=== PATIENT | male | born 1940 | race Caucasian/White ===

== ENCOUNTER 2016-09-29 14:04 | Inpatient (IN) ==
[2016-09-29] MEDS ORDERED: ZOFRAN IV ONE ×2 (14:35→15:51)
[2016-09-29] MEDS ORDERED: DILAUDID IV ONE (14:35)
[2016-09-29 15:05] LABS: BE -1.8 mmoll (-3.0-3.0); BLOOD TYPE ARTERIAL; METHB 1.2 % (0.0-1.5); PCO2(98.6) 42 mmHg (35-45); SAMPLE BLOOD; SAO2 84.5 % (95.0-100.0); pH(98.6) 7.36 (7.35-7.45)
[2016-09-29 15:09] LABS: MANUAL DIFF NEEDED? NO
[2016-09-29 15:11] LABS: PO2(98.6) 44 mmHg (60-100)
[2016-09-29 15:12] LABS: ALLEN TEST YES; DRAW SITE R RADIAL; MODALITY CANNULA
[2016-09-29 15:26] LABS: BASO% 0.1 % (0.0-0.8); EOS% 0.9 % (0.0-10.0); HEMOGLOBIN 15.7 g/dL (14.0-18.0); IMM GRAN# 0.02 X1000 (0.0-0.04); IMM GRAN% 0.2 % (0.0-0.5); LYMPH% 5.3 % (20.5-51.1); MCH 31.4 PG (27-31); MCHC 32.7 g/dL (33-37); MONO# 0.51 X1000 (0.11-0.59); MONO% 4.5 % (1.7-9.3); MPV 12.5 FL (7.4-10.4); PLT 144 X1000 (130-400)
--- NOTE | 2016-09-29 15:28 | EKG Report ---
Test Performed on : 09/29/2016 2:50:34 PM Test Reason : SOB Blood Pressure : / mmHG Vent. Rate : 122 BPM Atrial Rate : 125 BPM P-R Int : 000 ms QRS Dur : 084 ms QT Int : 300 ms P-R-T Axes : 000 084 -13 degrees QTc Int : 427 ms Atrial fibrillation. with rapid ventricular response. Abnormal QRS-T angle, consider primary T wave abnormality Abnormal ECG No previous ECGs available Unconfirmed Result
[2016-09-29 15:38] LABS: AGAP 14; ALBUMIN 4.8 g/dL (3.5-5.0); ALKALINE PHOSPHATASE 103 U/L (32-122); BUN 21 mg/dL (8-22); CALCIUM 9.9 mg/dL (8.8-10.2); CHLORIDE 103 mmol/L (98-107); CK PROFILE 192 U/L (24-204); COSMO 287; GOT 26 U/L (10-34); GPT 22 U/L (10-44); POTASSIUM 4.5 mmol/L (3.5-5.1); SODIUM 141 mmol/L (136-145); TCO2 25 mmol/L (25-35); TOTAL PROTEIN 7.9 g/dL (6.3-8.3)
--- NOTE | 2016-09-29 15:40 | Diag Imaging Result Doc PS360 ---
EXAM: RIBS UNILAT W/PA CHEST RIGHT HISTORY: Fall with SOB TECHNIQUE: Chest and right rib detail, five views COMPARISON: None. FINDINGS: No contusion or pneumothorax. The mediastinum is not widened. There is an acute fracture to the lateral seventh rib. There are also acute fractures posteriorly to the fifth, sixth, and seventh ribs. Possible nondisplaced eighth rib fracture. IMPRESSION: Multiple acute right rib fractures. Electronically signed by Glen Padilla 09/29/2016 3:38 PM
[2016-09-29] MEDS ORDERED: ZOFRAN ONE (15:51)
--- NOTE | 2016-09-29 17:05 | Diag Imaging Result Doc PS360 ---
EXAM: THORAX/ABDOMEN - 09/29/2016 HISTORY: Fall TECHNIQUE: With intravenous contrast. Dose reduction protocol. COMPARISON: None. FINDINGS: There are fractures of the lateral right fifth, lateral and anterior lateral right sixth, lateral and anterior lateral right seventh, and lateral right eighth ribs. There are substantial emphysematous changes, particularly at the upper lobes. There is a small right pleural effusion. There is compressive atelectasis at the inferior right lower lobe adjacent to the pleural fluid. There is no pneumothorax identified. There is consolidation at the left lower lobe. This is suspicious for pneumonia. There is no mediastinal hematoma or pericardial fluid identified. There is mild cardiomegaly. There is no evidence of injury to the liver, spleen, adrenal glands, or kidneys. There is a small right renal cyst. The pancreas is somewhat atrophic but shows no acute abnormality. There are a few small gallstones in the gallbladder. There is a small fat-containing umbilical hernia. There is no evidence of bowel obstruction. There is uncomplicated diverticulosis at the visualized colon. There is no abnormal bowel wall thickening identified. There is no free air. There is no free fluid identified in the abdomen. There is no peritoneal or retroperitoneal hematoma identified in the abdomen. There are substantial lumbar spine degenerative changes noted. IMPRESSION: Fractures of right fifth through eighth ribs. Small right pleural effusion with adjacent atelectasis. No evidence of pneumothorax. Substantial emphysematous changes. Left lower lobe consolidation suspicious for pneumonia. Mild cardiomegaly. No evidence of injury to the abdomen. Electronically signed by Stewart Grubbs 09/29/2016 5:02 PM
[2016-09-29] MEDS ORDERED: XYLOCAINE-MPF 1% INJ ONE (17:08)
[2016-09-29] MEDS ORDERED: ROCEPHIN 1 GM/NS 1 GM/50 ML IVPB IV ONE (17:09)
--- NOTE | 2016-09-29 17:36 | PROVIDER DOCUMENTATION ---
This chart was entered by Brynn Cooper Scribe, acting as scribe for Susan Ferguson CRNP. HPI-General Adult - General Chief Complaint: Rib Injury Stated Complaint: FALL INJURY Time Seen by Provider: 09/29/16 14:08 Source: patient Allergies/Adverse Reactions: Patient Allergies Allergy/AdvReac Type Severity Reaction Status Date / Time No Known Allergies Allergy Verified 09/29/16 14:27 Home Medications: Home Medication List Medication Instructions Recorded Confirmed Last Taken Type Amlodipine [Norvasc] 5 mg PO DAILY 09/29/16 09/29/16 09/29/16 05:30 History 5 MG Aspirin/Calcium Carbonate/Mag 325 mg PO DAILY 09/29/16 09/29/16 09/29/16 05:30 History [Aspirin Buffered 325 mg Tab] Carvedilol 25 mg PO BID 09/29/16 09/29/16 09/29/16 05:30 History 25 MG Lisinopril 20 mg PO DAILY 09/29/16 09/29/16 09/29/16 05:30 History 20 MG - History of Present Illness -Gen Adult Nature of Presenting Problems: 75 yo M presents to the ER with complaint of fall x3 days ago and R sided rib pain. Pt states it has gotten progressively worse, painful inspiration. States x3 days ago he fell about 12ft and landed on a metal bar. Pt arrives with increased respiratory rate and with a fever. Also has bruising and skin tears to L arm. Location of Pain/Injury: reports: upper extremity, upper body Onset/Duration: reports: 3 days ago Associated Symptoms: reports: fever/chills, joint pain, pain with inspiration Review of Systems - Adult - REVIEW OF SYSTEMS - ADULT Constitutional: reports: chills, fever Eyes: reports: no symptoms reported Ears, Nose, Mouth & Throat: reports: no symptoms reported Cardiovascular: denies: chest pain, palpitations Respiratory: reports: shortness of breath. denies: cough Gastrointestinal: denies: diarrhea, nausea, vomiting Genitourinary: reports: no symptoms reported Musculoskeletal: reports: see HPI, joint pain Integumentary: reports: no symptoms reported Neurological: reports: no symptoms reported Psychiatric: reports: no symptoms reported Endocrine: reports: no symptoms reported Hematologic/Lymphatic: reports: no symptoms reported Allergic/Immunologic: reports: no symptoms reported All Other Systems: Reviewed and Negative Past History - Adult - PAST MEDICAL HISTORY-ADULT Review of Records: reports: Nursing Assessment Review, Medications Reviewed Cardiovascular: reports: other (irregular heart rate) - PRIOR SURGERIES/PROCEDURES Surgical/Procedure History: reports: back/neck - IMMUNIZATION STATUS Childhood Immunizations: See Nurse Assessment Flu Vaccine: See Nurse Assessment Physical Exam-General - PHYSICAL EXAM-ADULT Initial Vital Signs Reviewed: Yes - CONSTITUTIONAL General Appearance: alert, no apparent distress - EYES Eyes: PERRL/EOMI, pink conjunctivae - HEAD, EARS, NOSE, MOUTH & THROAT HENMT: normocephalic/atraumatic, normal ENT inspection - NECK Neck: supple, normal inspection - RESPIRATORY Respiratory: rhonchi, pain on inspiration, increased rate, other (coarse breath sounds) - CARDIOVASCULAR Cardiovascular: normal peripheral pulses, regular rate, rhythm - GASTROINTESTINAL (ABDOMEN) Abdominal Exam: normal bowel sounds, non tender, soft - MUSCULOSKELETAL Back Exam: no CVA tenderness, no vertebral tenderness Extremity: normal gait, normal inspection - SKIN Integumentary: warm/dry, ecchymosis (L arm, R side ribs), other (skin tears to L arm) - NEUROLOGIC Neurologic: grossly normal, no motor/sensory deficits - PSYCHIATRIC Psych/Mental Status: normal mood/affect, normal thought content, normal thought process, oriented x 3 Progress - PLAN OF CARE/RESULTS Progress/Plan/Lab Results: Vital Signs - 8 hr 09/29/16 14:20 Temperature 100.5 F H Pulse Rate 115 H Respiratory Rate 28 H Blood Pressure 173/098 O2 Sat by Pulse Oximetry 82 L Orders Category Date Time Status Saline Loc NOW Care 09/29/16 14:34 Active RIBS UNILAT W/PA CHEST RIGHT [RAD] Stat Exams 09/29/16 14:35 Ordered ABG [RESP] Routine Lab 09/29/16 14:36 Ordered BLOOD CULTURE [BLDCUL] Stat Lab 09/29/16 14:35 Ordered CBC WITH ELECTRONIC DIFF [HEME] Stat Lab 09/29/16 14:34 Ordered CK PROFILE [SP CHEM] Stat Lab 09/29/16 14:34 Ordered COMPREHENSIVE METABOLIC PANEL [CHEM] Stat Lab 09/29/16 14:34 Ordered LACTATE, PLASMA [CHEM] Stat Lab 09/29/16 14:35 Ordered TROPONIN T Stat Lab 09/29/16 14:35 Ordered Hydromorphone [Dilaudid] Med 09/29/16 14:35 Discontinued 1 mg IV NOW ONE Ondansetron [Zofran] Med 09/29/16 14:35 Discontinued 4 mg IV NOW ONE EKG [EKG] Stat Ther 09/29/16 14:34 Ordered Discussed results and plan of care with patient. Patient agrees with plan and verbalizes understanding. Result Diagrams: 09/29/16 14:40 09/29/16 14:40 - EKG 1 Time of EKG reading by physician:: 14:50 EKG Read and Signed by:: Nohemi De Souza EKG Interpretation (*Must complete 3 of following elements*): Abnormal Rate: 122 Rhythm: a-fib with RVR [place]: normal QRS: other (abnormal QRS-T angle, consider primary T wave abnormality) CT Interval: normal ST Wave: normal - XRAY 1 XRAY: Right XRAY Study: Ribs Impression: Abnormal (multiple acute R rib fractures, per radiologist) - CT/MRI 1 CT Study: Abdomen, Thorax Impression: Abnormal (fractures of R 5-8 ribs. small R pleural effusion with adjacent atelectasis. no evidence of pneumothorax. substantial emphysematous changes. LLL consolidation suspicious for pneumonia. mild cardiomegaly. per radiologist) - CONSULTS/PCP/HOSPITALIST Notification #1 *Consult/PCP/Hospitalist*: Dr. Howard Time Discussed: 17:24 Reason/Comments: Admit Consult Disposition: Admit Departure - Departure Date of Disposition Decision: 09/29/16 Time of Disposition Decision: 17:25 DIAGNOSIS: Hypoxia, Multiple rib fractures, Pneumonia Disposition: HOME 01 Certified Medical Emergency: Emergent Condition: Stable Referrals and Follow-Ups: Stewart Malhotra MD [Primary Care Provider] - - Critical Care Note This patient required my direct & personal management of CC.: No Attestation - Physician/ ELAN Attestation Patient care was provided by Advanced Practice Provider:: Yes Advanced Practice Provider:: Susan Ferguson Advanced Practice Provider documentation review:: The Mid-level provider documentation, treatment plan and medical decision making was reviewed by the physician who agrees with all treatment and medical decision making by the [facility]. This chart was documented by the christian scribe, (Brynn Cooper Scribe) and accurately reflects the services I performed and decisions made by me, Susan Ferguson CRNP, as attested by the provider's signature.
--- NOTE | 2016-09-29 18:14 | HISTORY AND PHYSICAL ---
PRIMARY CARE PHYSICIAN: Dr. Stewart Malhotra. CHIEF COMPLAINT: Of a fall 3 days ago from a 12-foot scaffold now with increased pain with inspiration that occurred 3 days ago. HISTORY OF PRESENTING ILLNESS: This is a 75-year-old that presents to [facility] ER after he states that he fell off of a 12-foot scaffold approximately 3 days ago. Since then he has had increased pain with inspiration, shortness of breath. When he arrived to the emergency room he had a temperature of 100.5 degrees, a pulse of 115, respirations 28, blood pressure 173/98 and was saturating 82% on room air. Placed on O2 with a 15% nonrebreather now saturating 92%. Workup in the ER showed a white blood cell count of 11.34. A rib with chest x-ray showed multiple acute right rib fractures. No contusion or pneumothorax. CT of the abdomen and chest showed fractures of the right 5th through 8th rib, a left lower lobe consolidation suspicious for pneumonia. No evidence of injury of the abdomen. No evidence of pneumothorax and he is being admitted to the intensive care unit for further evaluation and treatment. PAST MEDICAL HISTORY: Hypertension and atrial fibrillation. PAST SURGICAL HISTORY: Back and neck surgery. FAMILY HISTORY: Noncontributory. SOCIAL HISTORY: He currently resides with his family. No tobacco, alcohol or illicit drug use. ALLERGIES: He has no known drug allergies. HOME MEDICATIONS: He takes Norvasc 5 mg p.o. daily, aspirin 325 mg p.o. daily, Coreg 25 mg p.o. b.i.d. and lisinopril 20 mg p.o. daily. LABORATORY DATA: Showed a white blood cell count of 11.34, hemoglobin 15.7, hematocrit 48, platelets 114,000. ABG showed a pH of 7.36 with a pCO2 of 42, an O2 of 44, bicarb 23,. Sodium 141, potassium 4.5, chloride 103, CO2 25, BUN of 21, creatinine 1, glucose 142, creatine kinase 192, troponin less than 0.010. Plasma lactate 0.8. Chest x-ray with rib showed multiple acute right rib fractures. EKG showed atrial fibrillation with RVR at 122. CT of the chest and abdomen showed fractures of the right 5th through 8th rib, no evidence of pneumothorax, a left lower lobe consolidation suspicious for pneumonia. No evidence of injury to the abdomen. REVIEW OF SYSTEMS: He denied any fever. He has had some chills. Denied any blurred vision or dizziness. He has had shortness of breath, increased pain to his right side with inspiration. Denied any abdominal pain. He is positive for right-sided chest pain where his ribs are broken. Denies any abdominal pain, constipation, diarrhea, burning or hurting with urination. PHYSICAL EXAMINATION: On arrival he had a temperature of a 100.5 degrees, pulse 115, respirations 28, blood pressure 173/98, and was saturating 82% on room air. His pulse is down now to 111, respirations 26, blood pressure 137/91, and he is saturating 92% on a 15% nonrebreather. GENERAL: This is a 75-year-old male who is lying in the bed and answers questions appropriately. HEENT: Normocephalic and atraumatic. Pupils are equal, round, and reactive to light. The extraocular movements are intact. The oropharynx and nares are clear. NECK: Supple. LUNGS: With rhonchi throughout entire lung lakhani. Equal lung expansion and chest wall movement noted. HEART: With irregular rate and rhythm in atrial fibrillation with some mild RVR in 110s now. No murmurs, rubs or gallops. ABDOMEN: Soft, nontender, nondistended. Bowel sounds are present x4 quadrants. EXTREMITIES: There is no clubbing, cyanosis, or edema. NEUROLOGICAL: The cranial nerves 2-12 appear grossly intact. ASSESSMENT: 1. Fall. 2. Acute respiratory failure. 3. Left lower lobe pneumonia. 4. A rib fracture on the right side of ribs 5 through 8. PLAN: He is being admitted to the intensive care unit. Placed on telemetry. O2 per protocol. Turn, cough and deep breathe q.2 hours. Healthy heart diet. Incentive spirometry. We will place on Rocephin 1 gram IV q.24, Levaquin 750 mg IV q.24, Dilaudid 1 mg IV q.4 hours p.r.n., Zofran 4 mg IV q.4 hours p.r.n. Continue his home medications as previously identified and recheck a CBC and a BMP in the a.m. Pt is a full code. Dictated by NELI Munguia for David Howard MD cc: MD David Otero MD MTDD
[2016-09-29] MEDS ORDERED: TYLENOL PO PRN (19:11)
[2016-09-29] MEDS ORDERED: ZOFRAN IV PRN (19:11)
[2016-09-29] MEDS: COREG PO SCH (20:11)
[2016-09-29] MEDS: DILAUDID IV PRN (20:11)
[2016-09-29] MEDS: LEVAQUIN 750 MG/D5W 750 MG/150 ML IVPB IV SCH (20:11)
[2016-09-30] MEDS: DILAUDID IV PRN ×3 (00:55→21:34)
[2016-09-30 06:10] LABS: AGAP 9; BUN 24 mg/dL (8-22); CALCIUM 9.1 mg/dL (8.8-10.2); CHLORIDE 101 mmol/L (98-107); COSMO 283; POTASSIUM 4.5 mmol/L (3.5-5.1); SODIUM 139 mmol/L (136-145); TCO2 29 mmol/L (25-35)
[2016-09-30 06:18] LABS: BASO% 0.1 % (0.0-0.8); EOS# 0.03 X1000 (0.0-0.7); EOS% 0.2 % (0.0-10.0); HEMATOCRIT 38.9 % (42.0-52.0); HEMOGLOBIN 12.6 g/dL (14.0-18.0); IMM GRAN# 0.03 X1000 (0.0-0.04); IMM GRAN% 0.2 % (0.0-0.5); LYMPH# 0.88 X1000 (1.2-3.4); LYMPH% 6.6 % (20.5-51.1); MANUAL DIFF NEEDED? YES; MCH 31.9 PG (27-31); MCHC 32.4 g/dL (33-37); MCV 98.5 FL (81-99); MONO# 0.95 X1000 (0.11-0.59); MONO% 7.2 % (1.7-9.3); MPV 12.5 FL (7.4-10.4); NEUT% 85.7 % (42.2-75.2); PLT 107 X1000 (130-400); RBC 3.95 XMIL (4.7-6.1)
[2016-09-30 07:51] LABS: BANDS 5 % (0-1); HYPOCHROM OCCASIONAL; LYMPHS 7 % (21-51); MONO 4 % (1-9)
[2016-09-30] MEDS: NORVASC PO SCH (09:19)
[2016-09-30] MEDS: ASPIRIN EC PO SCH (09:19)
[2016-09-30] MEDS: COREG PO SCH ×2 (09:19→20:15)
[2016-09-30] MEDS: PRINIVIL PO SCH (09:19)
--- NOTE | 2016-09-30 11:37 | PROGRESS NOTE ---
DATE: 09/30/2016 SUBJECTIVE: Patient has no focal complaints. OBJECTIVE: Vital Signs: Blood pressure 109/57, heart rate of 90, respiratory rate 24, temperature 97.6 degrees, satting 91% on 6 L. Cardiovascular: Regular rate and rhythm. Pulmonary: Bilateral breath sounds. Clear to auscultation. GI: Soft, nontender, nondistended. Bowel sounds are positive. LABORATORY DATA: White count of 13, H and H 12 and 38, platelets 107. Basic was normal. PROBLEM LIST: 1. Left lower lobe pneumonia. We will continue antibiotics. He is on Levaquin day 2 and Rocephin day 2. Need to work on pulmonary toilet. 2. Acute respiratory failure. We will work on trying to get his breathing better, add Mucomyst. He is on spirometry. Will add Acapella and Mucomyst as described. Hopefully we can try to work on weaning down oxygen. Obviously he is splinting from the multiple rib fractures. 3. Multiple rib fractures. We will continue pain control, incentive spirometry. He may need a physical therapy evaluation when his oxygen level is a little bit better. 4. Acute respiratory failure. We will continue to follow closely. Wean oxygen as tolerated. Continue with pulmonary toilet. DISPOSITION: He is still requiring a fairly significant amount of oxygen 6 L with saturations that are marginal, so I am going to continue monitoring in the ICU. cc: Mason Paulino MD
[2016-09-30] MEDS: NORCO-7.5 PO PRN ×2 (12:18→19:49)
[2016-09-30] MEDS ORDERED: DUONEB (A & A) ONE (13:54)
[2016-09-30] MEDS: MUCOMYST 20% INH SCH ×2 (14:01→19:55)
[2016-09-30] MEDS: DUONEB (A & A) INH SCH ×3 (14:01→23:45)
[2016-09-30] MEDS: ROCEPHIN 1 GM/NS 1 GM/50 ML IVPB IV SCH (17:10)
[2016-09-30] MEDS: LEVAQUIN 750 MG/D5W 750 MG/150 ML IVPB IV SCH (19:49)
[2016-10-01] MEDS: DILAUDID IV PRN ×2 (00:35→19:55)
[2016-10-01] MEDS: NORCO-7.5 PO PRN ×3 (02:25→21:49)
[2016-10-01] MEDS: DUONEB (A & A) INH SCH ×6 (04:08→23:20)
[2016-10-01 05:47] LABS: HEMOGLOBIN 12.9 g/dL (14.0-18.0); MCHC 33.1 g/dL (33-37); MCV 96.8 FL (81-99); MPV 12.3 FL (7.4-10.4); RBC 4.03 XMIL (4.7-6.1)
[2016-10-01 06:17] LABS: AGAP 10; BUN 23 mg/dL (8-22); CHLORIDE 98 mmol/L (98-107); COSMO 277; POTASSIUM 4.3 mmol/L (3.5-5.1); SODIUM 136 mmol/L (136-145); TCO2 28 mmol/L (25-35)
--- NOTE | 2016-10-01 07:37 | Diag Imaging Result Doc PS360 ---
EXAM: CHEST-PORTABLE - 10/01/2016 HISTORY: dyspnea TECHNIQUE: Portable chest 6:00 AM COMPARISON: 09/29/2016 FINDINGS: There is stable mild cardiomegaly. There is hazy right basilar opacity which is increased. There is grossly stable retrocardiac opacity. The upper lungs appear clear. There is possible small right pleural effusion, but there is no large pleural effusion identified. There is no pneumothorax identified. IMPRESSION: Stable mild cardiomegaly. Hazy right basilar opacity which is increased. Grossly stable retrocardiac opacity. No large pleural effusion. No pneumothorax. Electronically signed by Stewart Grubbs 10/01/2016 7:35 AM
[2016-10-01] MEDS: MUCOMYST 20% INH SCH ×2 (07:56→20:16)
[2016-10-01] MEDS: COREG PO SCH ×3 (09:56→21:54)
[2016-10-01] MEDS: PRINIVIL PO SCH (09:57)
[2016-10-01] MEDS: NORVASC PO SCH (09:57)
[2016-10-01] MEDS: ASPIRIN EC PO SCH (09:57)
[2016-10-01] MEDS: ROCEPHIN 1 GM/NS 1 GM/50 ML IVPB IV SCH (17:12)
[2016-10-01] MEDS: LEVAQUIN 750 MG/D5W 750 MG/150 ML IVPB IV SCH (19:47)
--- NOTE | 2016-10-01 19:51 | PROGRESS NOTE ---
DATE: 10/01/2016 SUBJECTIVE: Patient without any new complaints. States that he is feeling a little bit better. He is still coughing. It still hurts to breathe. He has been trying to use incentive spirometer. Denies any worsening of his breathing. Denies any GI or issues. Denies any rashes. OBJECTIVE: Vital Signs: Temperature 98.7, pulse 84, respiratory rate 18, BP 110/57, saturation 95% on 6 L. General: Patient is awake, alert. He is in no true respiratory distress, but he is still having difficulty taking deep breaths secondary to the pain from his previous rib fractures. HEENT: Normocephalic, atraumatic. PERRL, EOMI. Neck: Supple. CV: Regular rate. Chest: Relatively clear, although decreased breath sounds on the left. Abdomen: Soft. Extremities: Moves all extremities. ASSESSMENT: 1. Left lower lobe pneumonia. Currently on Levaquin and Rocephin. We will continue those. Will continue pulmonary toilet. 2. Recent fall with multiple rib fractures on the left. 3. Acute respiratory failure. He is currently on Acapella and Mucomyst, incentive spirometry, breathing treatments, oxygen. Will continue to attempt to wean down his oxygen as tolerated. He currently is on 6 L. PLAN: We will continue patient on oxygen. We will attempt to wean down. Will continue incentive spirometry. His O2 saturations are actually starting to come up despite staying on 6 L, we will attempt to wean down. We will move him out of the ICU today as he is stable. He is sitting up, and to see if this will allow him to start ambulating a little bit better and to improve his breathing. cc: David Howard MD
[2016-10-01] MEDS: ROBITUSSIN-AC PO PRN (21:49)
[2016-10-02] MEDS: DUONEB (A & A) INH SCH ×6 (03:14→23:44)
[2016-10-02] MEDS: MUCOMYST 20% INH SCH ×2 (07:51→19:37)
[2016-10-02] MEDS: ASPIRIN EC PO SCH (08:42)
[2016-10-02] MEDS: COREG PO SCH ×2 (08:42→20:52)
[2016-10-02] MEDS: PRINIVIL PO SCH (08:42)
[2016-10-02] MEDS: NORVASC PO SCH (08:42)
--- NOTE | 2016-10-02 10:05 | PROGRESS NOTE ---
DATE: 10/02/2016 SUBJECTIVE: The patient notes that he is still hurting. He had some episodes of hallucinations last night that he understands is not real. He felt like it was snowing outside his room in the hallway. Otherwise, he states that his breathing is starting to get a little bit better, but he is still very short of breath and tired with any movement. PHYSICAL EXAMINATION: Vital Signs: Temperature 98, pulse 100, respiratory rate 18, blood pressure 147/86, and saturation is 93% on 5 liters. General: The patient is awake, alert. He is currently in mild respiratory distress. He is sitting on the side of the bed. He is pleasant to talk with. Neck: Supple. Cardiovascular: Regular rate. Chest: Clear. Abdomen: Soft. Extremities: Moves all extremities. Neurologic: No changes. ASSESSMENT: 1. Acute hypoxic respiratory failure secondary to injury. 2. Left lower lobe pneumonia, continues to improve. 3. Multiple rib fractures. PLAN: We will continue the patient on IV antibiotics, IV fluids, oxygen, breathing treatments, pain control. Further orders as needed. cc: David Howard MD
[2016-10-02] MEDS: ROCEPHIN 1 GM/NS 1 GM/50 ML IVPB IV SCH (16:29)
[2016-10-02] MEDS: LEVAQUIN 750 MG/D5W 750 MG/150 ML IVPB IV SCH (20:52)
[2016-10-03] MEDS: DUONEB (A & A) INH SCH ×5 (04:04→19:29)
[2016-10-03 06:44] LABS: HEMATOCRIT 38.5 % (42.0-52.0); HEMOGLOBIN 12.9 g/dL (14.0-18.0); MCH 31.6 PG (27-31); MCHC 33.5 g/dL (33-37); MCV 94.4 FL (81-99); RBC 4.08 XMIL (4.7-6.1)
[2016-10-03 07:03] LABS: AGAP 17; ALBUMIN 3.4 g/dL (3.5-5.0); ALKALINE PHOSPHATASE 90 U/L (32-122); BUN 25 mg/dL (8-22); CALCIUM 9.3 mg/dL (8.8-10.2); CHLORIDE 100 mmol/L (98-107); COSMO 286; GOT 18 U/L (10-34); GPT 14 U/L (10-44); POTASSIUM 4.1 mmol/L (3.5-5.1); SODIUM 140 mmol/L (136-145); TCO2 23 mmol/L (25-35); TOTAL PROTEIN 6.7 g/dL (6.3-8.3)
[2016-10-03] MEDS: MUCOMYST 20% INH SCH ×2 (09:10→19:29)
[2016-10-03] MEDS ORDERED: LEVAQUIN 750 MG/D5W 750 MG/150 ML IVPB IV SCH (09:37)
[2016-10-03] MEDS: NORVASC PO SCH (09:41)
[2016-10-03] MEDS: PRINIVIL PO SCH (09:41)
[2016-10-03] MEDS: ASPIRIN EC PO SCH (09:41)
[2016-10-03] MEDS: COREG PO SCH ×2 (09:41→20:37)
--- NOTE | 2016-10-03 11:07 | PROGRESS NOTE ---
DATE: 10/03/2016 SUBJECTIVE: Patient notes he is feeling a little bit better. He is having less hallucinations. He still coughing a lot. Still having shortness of breath, dyspnea on exertion. Still did not sleep well last night. OBJECTIVE: Vital Signs: Reviewed. Temperature 99.7 degrees, pulse 102, respiratory 18, BP 151/84, sat 95% on 4 L. General: Patient is awake, alert. He is currently in no respiratory distress. He is sitting on the side of the bed. He is awake, alert. HEENT: Normocephalic atraumatic, REHANA. Neck: Supple. CV: Regular rate. Chest: Relatively clear. Decreased breath sounds but equal bilaterally. Abdomen: Soft. Extremities: Moves all extremities. Neurologic: No changes. DIAGNOSTIC DATA: CBC and CMP essentially normal. Glucose 131. TSH 4.48. ASSESSMENT: 1. Acute respiratory hypoxic failure improving. 2. Left lower lobe pneumonia improving. 3. Rib fracture on the right side improving. Pain control. 4. Hypoxemia improving although slowly. 5. Hypothyroidism. 6. Poor sleep. cc: David Howard MD
[2016-10-03] MEDS: ROCEPHIN 1 GM/NS 1 GM/50 ML IVPB IV SCH (18:53)
[2016-10-03] MEDS: ROBITUSSIN-AC PO PRN (20:37)
[2016-10-03] MEDS: LEVAQUIN PO SCH (20:37)
[2016-10-03] MEDS: NORCO-7.5 PO PRN (20:37)
[2016-10-03] MEDS: SEROQUEL PO SCH (20:37)
[2016-10-04] MEDS: DUONEB (A & A) INH SCH ×7 (00:01→23:40)
[2016-10-04] MEDS: SYNTHROID PO SCH (06:17)
[2016-10-04] MEDS: MUCOMYST 20% INH SCH ×2 (07:25→19:58)
[2016-10-04] MEDS: PRINIVIL PO SCH (08:15)
[2016-10-04] MEDS: FLONASE NAS SCH (08:15)
[2016-10-04] MEDS: NORVASC PO SCH (08:15)
[2016-10-04] MEDS: ASPIRIN EC PO SCH (08:15)
[2016-10-04] MEDS: COREG PO SCH ×2 (08:16→21:29)
--- NOTE | 2016-10-04 11:06 | PROGRESS NOTE ---
DATE: 09/03/2016 SUBJECTIVE: The patient notes that he is feeling better. He is still having pain on his ribs with any type of ambulation or deep breathing but notes that overall he has improved. He denies any chest pain, palpitations. States that he slept better last night. His hallucinations are improving. OBJECTIVE: Vital Signs: Temperature 97, pulse 99, respiratory rate 20, BP 151/77, saturations 97% on 4 L. General: Patient is awake, alert, currently in no respiratory distress. He is awake, alert, oriented. HEENT: Normocephalic and atraumatic. REHANA. Neck: Supple. CV: Regular rate. Chest: Equal bilaterally. Occasional rhonchi. No wheezing. Abdomen: Soft. Extremities: Moves all extremities. Neurologic: No changes. Labs: No new labs this a.m. ASSESSMENT: 1. Hypothyroidism. We will continue Synthroid. 2. Rib fractures. Continue pain control. 3. Left lower lobe pneumonia. He is on Levaquin 750 by mouth. We will continue this for 3 more days. We will continue to attempt to wean his oxygen and further orders as needed. cc: David Howard MD
[2016-10-04] MEDS: ROCEPHIN 1 GM/NS 1 GM/50 ML IVPB IV SCH (16:46)
[2016-10-04] MEDS: SEROQUEL PO SCH (21:29)
[2016-10-04] MEDS: LEVAQUIN PO SCH (21:29)
[2016-10-04] MEDS: NORCO-7.5 PO PRN (21:29)
[2016-10-05] MEDS: DUONEB (A & A) INH SCH ×3 (03:22→11:37)
[2016-10-05] MEDS: SYNTHROID PO SCH ×2 (05:57→07:35)
[2016-10-05] MEDS: MUCOMYST 20% INH SCH (07:53)
[2016-10-05] MEDS: ASPIRIN EC PO SCH (08:49)
[2016-10-05] MEDS: PRINIVIL PO SCH (08:49)
[2016-10-05] MEDS: NORVASC PO SCH (08:49)
[2016-10-05] MEDS: COREG PO SCH (08:50)
[2016-10-05] MEDS: FLONASE NAS SCH (08:50)
[2016-10-05 11:50] VITALS: BP 116/57
--- NOTE | 2016-10-06 09:14 | DISCHARGE SUMMARY ---
ADMISSION DATE: 09/29/2016 DISCHARGE DATE: 10/05/2016 DIAGNOSES: 1. Fall. 2. Rib fractures. 3. Left lower lobe pneumonia. 4. Hypothyroid. 5. Acute hypoxic respiratory failure secondary to injury, resolved. DIAGNOSTICS: 1. 09/29/2016 ribs with chest x-ray revealed no acute pneumothorax. Mediastinum is not widened. There is an acute fracture of the lateral 7th rib, as well as acute fractures posteriorly to the 5th, 6th and 7th ribs. 2. 09/29/2016 CT of the chest and abdomen revealed fractures of the 5th through 8th ribs. Small pleural effusion with adjacent atelectasis. No evidence of pneumothorax. Left lower lobe consolidation suspicious for pneumonia. 3. 10/01/2016 chest x-ray revealed stable cardiomegaly. No pleural effusion. No pneumothorax. HOSPITAL COURSE: Mr. Markham presented to the emergency room 3 days after falling from a 12 foot scaffold and during this time he developed increasing pain and shortness of breath. He was found to have left lower lobe pneumonia with multiple bilateral rib fractures. He was given supplemental oxygen. Blood cultures were obtained as well as sputum culture which revealed no growth. He was initially placed on Rocephin for antibiotic coverage with Levaquin added, given DuoNebs as well as pain and nausea medication. We did continue his home medications. Thankfully he did improve throughout the hospitalization and is ready to go home. PHYSICAL EXAMINATION: Cardiovascular: Regular rate and rhythm. S1 and S2 appreciated. Pulmonary: Breath sounds are diminished throughout with rhonchi that mostly clear to cough. Good rise and fall of the chest wall bilaterally. Gastrointestinal: Abdomen is soft, nontender, nondistended with bowel sounds in all 4 quadrants. Back: No CVAT. No spine tenderness. Musculoskeletal: Good range of motion of joints. Neurologic: He is alert and oriented x3. Extremities: No clubbing, cyanosis, or edema. Calves are nontender. Pulses are palpable x4. VITAL SIGNS: Blood pressure is 116/57 with a heart rate of 91, respirations are 18, temperature is 97.6 degrees, with room air saturations 93-97%. DISCHARGE MEDICATIONS: 1. Levaquin 750 mg p.o. daily for 3 days with his last dose 10/08/2016. 2. Lisinopril 20 mg daily. 3. Norvasc 5 daily. 4. Enteric-coated aspirin 325 daily. 5. Coreg 25 mg p.o. b.i.d. 6. Synthroid 50 mcg daily. He has been instructed to use his incentive spirometer 4-5 breaths hourly when awake. DISCHARGE ACTIVITY: As tolerated. FOLLOWUP: He is to follow up with his primary care physician, Dr. Stewart Malhotra, in a week. He will need a TSH drawn in 3-4 weeks to evaluate Synthroid. Followup of TSH and lab redraw with medication dosing will be per Dr. Malhotra' expertise. He has been instructed to call to be seen sooner or to return to the emergency room for increasing shortness of breath, productive cough including hemoptysis, any difficulty lying down and breathing, any palpitations, chest pain, temperature greater than 100, or for any questions or concerns that he may have. He is being discharged home in stable condition with family members. TIME SPENT: This is a greater than 30 minute discharge from 11:30 to 12:05. DD please send a copy of this to his primary care physician Dr. Stewart Malhotra. Dictated by NELI Scales for David Howard MD cc: NELI Scales MD Malcolm R. Hendricks, MD
== END 2016-10-05 12:25 | disposition home or self-care (01) ==
LOC: P.ED 14:04 → P.ICU 18:49 → SUATTDRO 18:49 → P.ICU 18:52 → P.MEDSURG 10-01 09:44
PROVIDERS: ATTEND Family Medicine